=== PATIENT | female | born 1950 | race Caucasian/White ===

== ENCOUNTER → 2017-12-12 | Outpatient (CLI) | payer OTHER, MEDICARE | LOC: FIMAGING 09:09 | PROVIDERS: ATTEND Orthopaedic Surgery | DX: Z01.818 Encounter for other preprocedural examination (principal); M17.12 Unilateral primary osteoarthritis, left knee ==

== ENCOUNTER 2017-12-27 09:54 | Observation (INO) | payer OTHER, MEDICARE ==
[~2017-12-27 09:54] MED LIST: *IRR*TRANEXAMIC ACID 3,000 MG/NS 50 ML IRR ONE; ROPIVACAINE 0.2% 80 MG, EPINEPHrine 0.2 MG, KETOROLAC TROMETHAMINE 30 MG in SYRINGE 0 ML IU ONE; TRANEXAMIC ACID 3,000 MG in NS 50 ML IRR ONE; TRANEXAMIC ACID 3,000 MG/50 ML BAG IRR ONE
[2017-12-27] MEDS ORDERED: ACETAMINOPHEN 325 MG TAB PO ONE (10:13)
[2017-12-27] MEDS ORDERED: ceFAZolin 2 GM/SWFI 2 GM/20 ML SYR IVP ONE (10:13)
[2017-12-27] MEDS ORDERED: FAMOTIDINE 20 MG TAB PO ONE (10:13)
[2017-12-27] MEDS ORDERED: DEXAMETHASONE 4 MG/ML VIAL IVP ONE (10:13)
[2017-12-27] MEDS ORDERED: LR 1,000 ML IV ONE (10:15)
[2017-12-27] MEDS ORDERED: LIDOCAINE 1% 2 ML INJ ID PRN (10:15)
[2017-12-27 11:13] LABS: INR 1.01 (0.83-1.16); PROTIME(PATIENT) 13.5 SEC (12.0-15.0)
[2017-12-27] MEDS ORDERED: MIDAZOLAM 2 MG/2 ML VIAL IVP ONE (12:08)
--- NOTE | 2017-12-27 12:11 | PDANEPAE ---
ANE Past Medical History - Cardiovascular History Hx Hypertension: Yes Hx Arrhythmias: No Hx Chest Pain: No Hx Coronary Artery / Peripheral Vascular Disease: No Hx CHF / Valvular Disease: No Hx Palpitations: No Cardiovascular History Comment: pt has significant hx of DVT's and pulmonary emboli - Pulmonary History Hx COPD: No Hx Asthma/Reactive Airway Disease: No Hx Recent Upper Respiratory Infection: No Hx Oxygen in Use at Home: No Hx Sleep Apnea: No Sleep Apnea Screening Result - Last Documented: Positive Pulmonary History Comment: pulmonary emboli - Neurologic History Hx Cerebrovascular Accident: No Hx Seizures: No Hx Dementia: No Neurologic History Comment: unknown episode in 2010 all tests came up negative except for thyroid issues - Endocrine History Hx Diabetes: Yes Endocrine History Comment: 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 Bilat shoulder surgery 04/2013. 3 knee surgeries. hysterectomy. laminotomy. Foot surgery. foot surgery ANE Review of Systems Review of Systems: - Exercise capacity METS (RN): 5 METS - Systems Hematologic/Lymphatic: Reports: blood clots ANE Patient History - Allergies Allergies/Adverse Reactions: erythromycin base [Erythromycin Base] Allergy (Mild, Verified 12/27/17 10:30) Rash - Home Medications Home Medications: Acetaminophen [Tylenol 325mg (*)] 325 mg PO DAILY PRN 11/23/17 [Last Taken 12/26 16:00] Atorvastatin Calcium [Lipitor 20 mg (*)] 20 mg PO HS 11/23/17 [Last Taken 20:30] Calcium Carbonate [Oyster Shell Calcium 500 mg (*)] 500 mg PO DAILY 11/23/17 [ Last Taken 12/13/17] Cholecalciferol Vit D3 [Vitamin D3 (*)] 5,000 units PO DAILY 11/23/17 [Last Taken 12/13/17] Colchicine [Colchicine (*)] 0.6 mg PO DAILY 11/23/17 [Last Taken 12/20/17] Losartan/Hctz 50/12.5 [Hyzaar 50/12.5MG (*)] 1 tab PO DAILY 11/23/17 [Last Taken 12/26/17 07:30] Multivitamins [Multivitamin (*)] 1 each PO DAILY 11/23/17 [Last Taken 12/13/17] Warfarin Sodium [Coumadin 2MG (*)] 7 mg PO SUTUTH@1930 11/23/17 [Last Taken ] Warfarin Sodium [Coumadin 3MG (*)] 6 mg PO MOWEFRSA@1930 11/23/17 [Last Taken ] metFORMIN SR [Glucophage XR 500 mg (*)] 500 mg PO BID 11/23/17 [Last Taken 12/26 18:30] methylPREDNISolone [Medrol 4mg (*)] 4 mg PO DAILY 11/23/17 [Last Taken 12/26/17 20:00] - NPO status NPO Since - Liquids (Date): 12/27/17 NPO Since - Liquids (Time): 08:15 NPO Since - Solids (Date): 12/26/17 NPO Since - Solids (Time): 19:00 - Anes Hx Anes Hx: no prior problems - Smoking Hx Smoking Status: Never smoked - Family Anes Hx Family Hx Anesthesia Complications: none ANE Labs/Vital Signs - Vital Signs Blood Pressure: 124/74 Heart Rate: 89 Respiratory Rate: 16 O2 Sat (%): 95 Height: 175.26 cm Weight: 102.058 kg ANE Physical Exam - Airway Neck exam: FROM Mallampati Score: Class 2 Mouth exam: normal dental/mouth exam - Pulmonary Pulmonary: no respiratory distress, no rales or rhonchi, clear to auscultation - Cardiovascular Cardiovascular: regular rate and rhythym, no murmur, rub, or gallop - ASA Status ASA Status: II ANE Anesthesia Plan Anesthesia Plan: spinal Regional Anesthesia: adductor canal FNB
[2017-12-27] MEDS ORDERED: fentaNYL 100 MCG/2 ML INJ ONE (12:15)
[2017-12-27] MEDS ORDERED: PROPOFOL/EMULSION 500 MG/50 ML BOTTLE IV ONE (12:15)
[2017-12-27] MEDS ORDERED: DEXAMETHASONE 4 MG/ML VIAL ONE (12:15)
[2017-12-27] MEDS ORDERED: BUPIVACAINE/EPI 0.5% 30 ML SDV ONE (12:18)
--- NOTE | 2017-12-27 12:34 | PDHPUP ---
History & Physical Update H&P update statement: This history and physical update is based on an assessment of the patient which was completed after admission or registration (within 24 hours), but prior to the surgery/procedure. H&P update: H&P reviewed & patient examined, no change in patient's condition since H&P completed
[2017-12-27] MEDS ORDERED: OXYCODONE/APAP 5/325 TAB PO PRN (13:45)
[2017-12-27] MEDS ORDERED: fentaNYL 100 MCG/2 ML INJ IVP PRN (13:45)
[2017-12-27] MEDS ORDERED: LR 500 ML IV PRN (13:45)
[2017-12-27] MEDS ORDERED: NALOXONE HCL 0.4 MG/ML INJ IVP PRN (13:45)
[2017-12-27] MEDS ORDERED: LABETALOL HCL 5 MG/ML 20 ML MDV IVP PRN (13:45)
[2017-12-27] MEDS ORDERED: ENALAPRILAT DIHYDRATE 1.25 MG/ML VIAL IVP PRN (13:45)
[2017-12-27] MEDS ORDERED: ONDANSETRON 4 MG/2 ML VIAL IVP PRN ×2 (13:45→14:08)
[2017-12-27] MEDS ORDERED: PROMETHAZINE HCL 25 MG/ML INJ IVP PRN ×2 (13:45→14:08)
[2017-12-27] MEDS ORDERED: METOCLOPRAMIDE 10 MG/2 ML VIAL IVP PRN (14:08)
[2017-12-27] MEDS ORDERED: DIPHENOXYLATE/ATROPINE LOMOTIL 1 TAB PO PRN (14:08)
[2017-12-27] MEDS ORDERED: CYCLOBENZAPRINE 10 MG TAB PO PRN (14:08)
[2017-12-27] MEDS ORDERED: LACTULOSE 20 GM/30 ML UDCUP PO PRN (14:08)
[2017-12-27] MEDS ORDERED: BISACODYL 10 MG SUPP PR PRN (14:08)
[2017-12-27] MEDS ORDERED: MAGNESIUM HYDROXIDE 30 ML UDCUP PO PRN (14:08)
[2017-12-27] MEDS ORDERED: TEMAZEPAM 15 MG CAP PO PRN (14:08)
[2017-12-27] MEDS ORDERED: PROMETHAZINE HCL 25 MG SUPPR PR PRN (14:08)
[2017-12-27] MEDS ORDERED: POLYETHYLENE GLYCOL 3350 17 GM PKT PO PRN (14:08)
[2017-12-27] MEDS ORDERED: ONDANSETRON DISINTEGRATING 4 MG TAB PO PRN (14:08)
[2017-12-27] MEDS ORDERED: diphenhydrAMINE 25 MG CAP PO PRN (14:08)
--- NOTE | 2017-12-27 14:08 | POSTOPPROG ---
Post Op Note Date of Operation: 12/27/17 Surgeon: Artis Dkyes Occupational Therapist Aide: dillon dykes Anesthesiologist: dr. lucero Anesthesia: Spinal, Other (Specify) (adductor canal block) Pre-op Diagnosis: left knee OA Post-op Diagnosis: same Indication: left knee pain due to OA that failed conservative measures Procedure: L TKA robot assisted, and hardware removal Findings: severe knee OA Inf/Abcess present in the surg proc area at time of surgery?: No EBL: 50-100 Specimen(s): synovial fluid
[2017-12-27] MEDS ORDERED: LR 1,000 ML IV SCH (14:30)
--- NOTE | 2017-12-27 15:28 | POSTANESTH ---
Post Anesthetic Evaluation Cardiovascular Status: Normal, Stable, Similar to Pre-Op Cond Respiratory Status: Normal, Stable, Similar to Pre-op Cond. Level of Consciousness/Mental Status: Can Participate in Eval, Mildly Sleepy, Arousable Pain Control: Adequate, Prn Tx Ordered Nausea/Vomiting Control: Adequate, Prn Tx Ordered Complications Possibly Related to Anesthesia: None Noted (Adductor canal nerve block performed in PACU.)
[2017-12-27] MEDS ORDERED: WARFARIN SODIUM 3 MG TAB PO SCH (16:00)
[2017-12-27] MEDS: ACETAMINOPHEN 325 MG TAB PO SCH ×2 (17:58→23:34)
[2017-12-27] MEDS: oxyCODONE IR 5 MG TAB PO PRN (20:41)
[2017-12-27] MEDS: metFORMIN SR 500 MG TAB PO SCH (20:42)
[2017-12-27] MEDS: ceFAZolin 2 GM/DEXTROSE 100 ML IV SCH (20:42)
[2017-12-27] MEDS: SENNOSIDES/DOCUSATE SODIUM TAB PO SCH (20:42)
[2017-12-27] MEDS: FAMOTIDINE 20 MG TAB PO SCH (20:42)
[2017-12-27] MEDS ORDERED: ATORVASTATIN CALCIUM 20 MG TAB PO SCH (21:00)
[2017-12-28] MEDS: oxyCODONE IR 5 MG TAB PO PRN ×2 (02:24→07:41)
[2017-12-28] MEDS: ceFAZolin 2 GM/DEXTROSE 100 ML IV SCH (05:00)
[2017-12-28] MEDS: ACETAMINOPHEN 325 MG TAB PO SCH (05:00)
[2017-12-28 05:30] LABS: INR 1.09 (0.83-1.16); PROTIME(PATIENT) 14.3 SEC (12.0-15.0)
[2017-12-28 07:28] VITALS: BP 132/87; PULSE 56; RESP 16; TEMP 97.9; O2SAT 93
[2017-12-28] MEDS: FAMOTIDINE 20 MG TAB PO SCH (08:36)
[2017-12-28] MEDS: metFORMIN SR 500 MG TAB PO SCH (08:36)
[2017-12-28] MEDS: SENNOSIDES/DOCUSATE SODIUM TAB PO SCH (08:37)
[2017-12-28] MEDS ORDERED: methylPREDNISolone 4 MG TAB PO SCH (09:00)
[2017-12-28] MEDS ORDERED: ENOXAPARIN 40 MG/0.4 ML SYR SC SCH (09:00)
[2017-12-28] MEDS ORDERED: LOSARTAN/HCTZ 50/12.5 1 TAB PO SCH (09:00)
--- NOTE | 2017-12-28 12:13 | ASDISCHSUM ---
Discharge Information Plan Status:Home with No Needs Medically Cleared to Leave: Discharge Date:12/28/2017 11:01 AM CM D/C Disposition:Home, Routine, Self-Care ADT D/C Disposition:Home, Routine, Self-Care Projected Discharge Date:12/28/2017 11:01 AM Transportation at D/C: Discharge Delay Reason: Follow-Up Date:12/28/2017 11:01 AM Discharge Slot: Final Diagnosis: Placement Information Patient Contact Information Contact Name:PHYLLIS Relationship:Life Partner Address:[address] City:[facility] Phone: [facility]/Zip Code:[place] [address] Email: Financial Information Financial Class: Primary Plan Desc:MEDICARE OUTPATIENT Primary Plan Number:[id number] Secondary Plan Desc:[employer]/MDR SUPPLEMENT Secondary Plan Number:[id number] Assessment Information Intervention Information Intervention Type:*Incorrect Registration Date of Service:12/27/2017 03:54 PM Patient Type:Inpatient Staff Member:MOY Smith Kerry Hours: Discipline: Severity: Comment: Intervention Type:*GRANDE-Signed Date of Service:12/28/2017 09:59 AM Patient Type:Observation Staff Member:Traci Villalba Hours: Discipline: Severity: Comment:
--- NOTE | 2017-12-28 13:04 | SOAPPROG ---
SOAP Progress Note Assessment/Plan: Assessment: Gloria is doing POD 1 s/p L TKA pain is well controlled on oral medications DVT ppx: recommend coumadin and lovenox anemia: level is expected initially postop d/c planning: d/c to home pending release from PT Plan: 12/28/17 13:03 Subjective: Gloria is doing well today, denies SOB, chest pain and N/V. Objective: Vital Signs Temp Pulse Resp BP Pulse Ox 36.6 C 56 L 16 132/87 H 93 12/28/17 07:27 12/28/17 07:27 12/28/17 07:27 12/28/17 08:36 12/28/17 07:27 Microbiology 12/27/17 13:13 Gram Stain - Final Knee - Aspirate Laboratory Results 12/28/17 04:55 12/27/17 12/28/17 12/29/17 05:59 05:59 05:59 Intake Total 1826 500 Output Total 1100 500 Balance 726 0 PT 14.3 SEC (12.0-15.0) 12/28/17 04:55 INR 1.09 (0.83-1.16) 12/28/17 04:55 LLE; incision dressing is clean and dry, NVI, +pf/df ICD10 Worksheet Patient Problems: Problems Problem Status Onset Primary localized osteoarthritis of left knee Acute Pulmonary embolism Acute
--- NOTE | 2017-12-28 14:22 | GOP ---
[f rep st] OPERATIVE REPORT DATE OF OPERATION: 12/27/2017 SURGEON: Aravind Hansen MD [employer] DRIVER: Marcella Hansen PA-C ANESTHESIA: Spinal. PREOPERATIVE DIAGNOSIS: Left knee osteoarthritis. POSTOPERATIVE DIAGNOSIS: Left knee osteoarthritis. PROCEDURE PERFORMED: Left total knee arthroplasty with computer navigation and robotic assist. FINDINGS: ESTIMATED BLOOD LOSS: 30 cc. INDICATIONS: The patient is a 67-year-old female with severe and progressive pain and deformity of the left knee unresponsive to conservative care. The risks and benefits of surgical intervention were explained in detail. DESCRIPTION OF PROCEDURE: The patient was brought to the operative room and placed on the table in the supine position. Spinal anesthesia was induced without difficulty. A pneumatic tourniquet was applied about the left proximal thigh, and the leg was prepped and draped in a sterile fashion. The leg catalan was applied. After exsanguination by elevation the tourniquet was inflated to 250 mmHg. Incision was made anterior medial from the tibial tuberosity to a point 2 cm proximal to the superior pole of the patella. Medial parapatellar arthrotomy was carried out from the superior pole of the patella and posteriorly in line with the fibers of the Type II VMO. The medial collateral ligament was elevated and the infrapatellar fat pad was resected. Staple hardware was removed without difficulty. The patella was everted and the articular surface was excised. A 35 mm patellar button was placed. Attention was turned first to the distal aspect of the femur. After exposure of the femur, 2 half pins were placed for fixation of the femoral array. In a similar fashion, 2 pins were placed anteromedial on the tibia for fixation of the tibial array. External land marking and registration of the hip center were performed without difficulty. Internal femoral and tibial registration were carried out without difficulty and the femoral and tibial checkpoints were placed and verified for accuracy. Attention was turned to the femur. The foot print for the size 4 femoral component was cut with the saw using the [employer] robotic system and verified for accuracy against the CT based plan. In a similar fashion, the saw was used to cut the footprint for the size 5 tibial component using the JAG system and verified for accuracy against the CT based plan. The tibial articular surface was excised without difficulty, followed by the intercondylar box cut. The knee was extended and the remnants of the medial and lateral meniscus were excised. The posterior capsule was injected with ropivacaine, epinephrine and Toradol. A size 5 tibial tray was positioned. Trial reduction was then carried out. There was excellent range of motion, alignment, and stability using the 9 mm polyethylene. All trials were then removed. The joint was thoroughly irrigated and carefully dried. The press-fit components were implanted. The permanent 9 mm polyethylene was placed without difficulty. The tourniquet was deflated and all bleeders were coagulated. The wound was thoroughly irrigated and closed using interrupted sutures of 2-0 Vicryl for the joint capsule. The subcu was closed with 3-0 Vicryl and the skin with 4-0 Monocryl. Dermabond and Steri-Strips were applied followed by a compressive dressing. The patient was then moved from the operating room to the recovery room in good condition, having tolerated the procedure well. /[id number]/MODL MTDD
[2017-12-28] MEDS ORDERED: WARFARIN SODIUM 2 MG TAB PO SCH (19:30)
--- NOTE | 2017-12-28 22:59 | GDS ---
[f rep st] DISCHARGE SUMMARY ADMISSION DIAGNOSIS: Left knee osteoarthritis. DISCHARGE DIAGNOSIS: Left knee osteoarthritis. PROCEDURE: Left total knee arthroplasty, robot assisted. VTE PROPHYLAXIS: Recommend patient resume Coumadin and continue on Lovenox. BRIEF DESCRIPTION OF HOSPITAL STAY: Patient was admitted for an elective joint arthroplasty. The pa rachele tolerated the procedure well and has passed physical therapy. The patient was given appropriat e antibiotic prophylaxis and venous thromboembolism prophylaxis. The patient's pain was well control led on oral pain medication, patient was holding down food, and had urinated. Decision was made to d ischarge the patient. The patient was given post-operative prescriptions pre-operatively. PLAN: Please follow up as scheduled in Dr. Hansen's office in 3 weeks. /[id number]/MODL
== END 2017-12-28 11:01 | disposition home or self-care (01) ==
LOC: F3N 09:54 → INTOOBSV 09:54 → F3N 15:09
PROVIDERS: ADMIT Orthopaedic Surgery; ATTEND Orthopaedic Surgery
PROC: 0SRD0JA Replacement of Left Knee Joint with Synthetic Substitute, Uncemented, Open Approach (ICD-10-PCS; principal; 2017-12-27 12:15)
PROC: 8E0YXBZ Computer Assisted Procedure of Lower Extremity (ICD-10-PCS; principal; 2017-12-27 12:15)
DX: M17.12 Unilateral primary osteoarthritis, left knee (principal); M25.562 Pain in left knee; I10 Essential (primary) hypertension; G47.33 Obstructive sleep apnea (adult) (pediatric); R73.03 Prediabetes; Z79.01 Long term (current) use of anticoagulants; Z86.711 Personal history of pulmonary embolism; Z86.718 Personal history of other venous thrombosis and embolism
CPT/HCPCS: 20985; 27447; 73560; 88311; 97161; 97165; C1776; G8978; G8979; G8980; G8987; G8988; G8989; J0171; J0690; J1100; J1650; J1885; J2250; J2704; J2795; J3010

== ENCOUNTER 2018-11-23 17:39 | Observation (INO) | payer OTHER, MEDICARE ==
[2018-11-23] MEDS ORDERED: NS 1,000 ML IV ONE ×2 (17:47→18:59)
[2018-11-23 17:58] LABS: PLATELET COUNT 343 10^3/uL (150-400)
--- NOTE | 2018-11-23 19:41 | EDPHY ---
H & P Stated Complaint: near syncope Time Seen by Provider: 11/23/18 17:45 HPI/ROS: Chief complaint: Nausea, vomiting, diarrhea and near-syncope History of present illness: This is a 68-year-old female who presents to the emergency department with EMS for nausea, vomiting and diarrhea with multiple near syncopal episodes. Patient reports she was a near usual state of health last night. She is out with her and friends. She ate pizza and salad for dinner. This morning she woke up feeling unwell. She subsequently developed multiple episodes of nausea, vomiting and diarrhea. Described as nonbloody. Symptoms have been persistent. Occasional abdominal cramping. She is taken to Imodium with no effect. She decided to come to the hospital, however she attempted to get up and fell over. She has had multiple near syncopal episodes. EMS had to be called she was able to come here on her own. She does take Coumadin for remote history of PE. Her INR today was 4.1, this morning it was 3.1. Review of systems: A 10 point review of systems was obtained and other than described above was negative - Personal History Current Tetanus/Diphtheria Vaccine: Yes Current Tetanus Diphtheria and Acellular Pertussis (TDAP): Yes - Medical/Surgical History Hx Asthma: No Hx Chronic Respiratory Disease: No Hx Diabetes: No Hx Cardiac Disease: No Hx Renal Disease: No Hx Cirrhosis: No Hx Alcoholism: No Hx HIV/AIDS: No Hx Splenectomy or Spleen Trauma: No Other PMH: HTN. L rotator cuff repair 3 days ago. PMR - Social History Smoking Status: Never smoked - Physical Exam Exam: General Appearance: Alert, is a nontoxic. Eyes: Pupils equal and round no pallor or injection. ENT, Mouth: Mucous membranes moist. Respiratory: There are no retractions, lungs are clear to auscultation. Cardiovascular: Regular rate and rhythm. Gastrointestinal: Bowel sounds normal. Abdomen is soft, nondistended, nontender. Neurological: Alert and oriented x4. Strength and sensation intact and symmetrical. Skin: Warm and dry, no rashes. Musculoskeletal: Neck is supple non tender. Extremities are symmetrical, full range of motion. Psychiatric: Patient is oriented X 3, there is no agitation. Constitutional: Initial Vital Signs Temperature (C) 36.7 C 11/23/18 17:42 Heart Rate 81 11/23/18 17:42 Respiratory Rate 18 11/23/18 17:42 Blood Pressure 136/88 H 11/23/18 17:42 O2 Sat (%) 98 11/23/18 17:42 O2 Delivery Mode Room Air Allergies/Adverse Reactions: erythromycin base [Erythromycin Base] Allergy (Mild, Verified 12/27/17 10:30) Rash Home Medications: Medication Instructions Recorded Atorvastatin Calcium [Lipitor 20 20 mg PO HS 11/23/17 mg (*)] Calcium Carbonate [Oyster Shell 500 mg PO DAILY 11/23/17 Calcium 500 mg (*)] Cholecalciferol Vit D3 [Vitamin D3 5,000 units PO DAILY 11/23/17 (*)] Colchicine [Colchicine (*)] 0.6 mg PO Q2D 11/23/17 Losartan/Hctz 50/12.5 [Hyzaar 1 tab PO DAILY 11/23/17 50/12.5MG (*)] methylPREDNISolone [Medrol 4mg (*)] 4 mg PO Q2D 11/23/17 Colchicine [Colchicine (*)] 0.3 mg PO Q2D 11/23/18 Warfarin Sodium [Coumadin 1MG (*)] 1 mg PO DAILY16 11/23/18 Warfarin Sodium [Coumadin 5MG (*)] 5 mg PO DAILY16 11/23/18 methylPREDNISolone [Medrol 4mg (*)] 2 mg PO Q2D 11/23/18 Medical Decision Making ED Course/Re-evaluation: Patient is discussed with my secondary supervising physician Dr. Misael Funes. Patient presents to the emergency department with persistent nausea, vomiting and diarrhea and had multiple near syncopal episodes this evening. Ultimately I am concerned she is dehydrated. She is IV hydrated with improvement in symptoms. However I am concerned sending her home with ongoing symptoms is not safe as she may not be able to perform ADLs, and if she has more falling episodes she could injured herself and she is on Coumadin. I discussed home versus inpatient care. She is comfortable being admitted. She is admitted to the hospitalist service, Dr. Tuan Ford for further evaluation and care. Differential Diagnosis: Included but not limited to hypovolemic state including dehydration anemia, electrolyte disturbances, cardiac dysrhythmia, unlikely PE given lack of chest pain, shortness of breath and currently on anticoagulants - Data Points Laboratory Results: Laboratory Results 11/23/18 17:45 11/23/18 17:45 11/23/18 11/23/18 11/23/18 19:01 17:56 17:45 WBC RBC Hgb Hct MCV MCH MCHC RDW Plt Count MPV Neut % (Auto) Lymph % (Auto) Fergus % (Auto) Eos % (Auto) Baso % (Auto) Nucleat RBC Rel Count Absolute Neuts (auto) Absolute Lymphs (auto) Absolute Monos (auto) Absolute Eos (auto) Absolute Basos (auto) Absolute Nucleated RBC Immature Gran % Seg Neutrophils % Band Neutrophils % Lymphocytes % Monocytes % Eosinophils % Basophils % Metamyelocytes % Myelocytes % Promyelocytes % Blast Cells % Immature Gran # Absolute Seg Neuts Absolute Band Neuts Absolute Lymphocytes Absolute Monocytes Absolute Eosinophils Absolute Basophils Absolute Metamyelocyte Absolute Myelocytes Absolute Promyelocytes Absolute Plasma Cells Nucleated RBCs Absolute Blast Cells Plasma Cells % Platelet Estimate Polychromasia PT 28.9 SEC H SEC (12.0-15.0) INR 2.74 H (0.83-1.16) Sodium 139 mEq/L mEq/L (135-145) Potassium 4.0 mEq/L mEq/L (3.5-5.2) Chloride 106 mEq/L mEq/L (97-110) Carbon Dioxide 23 mEq/l mEq/l (22-31) Anion Gap 10 mEq/L mEq/L (6-14) BUN 20 mg/dL mg/dL (7-23) Creatinine 1.2 mg/dL H mg/dL (0.6-1.0) Estimated GFR 45 Glucose 160 mg/dL H mg/dL (70-100) Calcium 9.3 mg/dL mg/dL (8.5-10.4) POC Troponin I 0.01 ng/mL ng/mL (0.00-0.08) 11/23/18 17:45 WBC 6.96 10^3/uL 10^3/uL (3.80-9.50) RBC 4.91 10^6/uL 10^6/uL (4.18-5.33) Hgb 14.1 g/dL g/dL (12.6-16.3) Hct 43.9 % % (38.0-47.0) MCV 89.4 fL fL (81.5-99.8) MCH 28.7 pg pg (27.9-34.1) MCHC 32.1 g/dL L g/dL (32.4-36.7) RDW 15.0 % % (11.5-15.2) Plt Count 343 10^3/uL 10^3/uL (150-400) MPV 10.2 fL fL (8.7-11.7) Neut % (Auto) Not Reported Lymph % (Auto) Not Reported Fergus % (Auto) Not Reported Eos % (Auto) Not Reported Baso % (Auto) Not Reported Nucleat RBC Rel Count Not Reported Absolute Neuts (auto) Not Reported Absolute Lymphs (auto) Not Reported Absolute Monos (auto) Not Reported Absolute Eos (auto) Not Reported Absolute Basos (auto) Not Reported Absolute Nucleated RBC Not Reported Immature Gran % Not Reported Seg Neutrophils % 74.0 % % Band Neutrophils % 15.0 % % Lymphocytes % 3.0 % % Monocytes % 6.0 % % Eosinophils % 2.0 % % Basophils % 0.0 % % Metamyelocytes % 0.0 % % Myelocytes % 0.0 % % Promyelocytes % 0.0 % % Blast Cells % 0.0 % % Immature Gran # Not Reported Absolute Seg Neuts 5.15 10^3/uL 10^3/uL (1.70-6.50) Absolute Band Neuts 1.04 10^3/uL H 10^3/uL (0.00-0.70) Absolute Lymphocytes 0.21 10^3/uL L 10^3/uL (1.00-3.00) Absolute Monocytes 0.42 10^3/uL 10^3/uL (0.30-0.80) Absolute Eosinophils 0.14 10^3/uL 10^3/uL (0.03-0.40) Absolute Basophils 0.00 10^3/uL L 10^3/uL (0.02-0.10) Absolute Metamyelocyte 0.00 10^3/mL 10^3/mL (0.00-0.00) Absolute Myelocytes 0.00 10^3/mL 10^3/mL (0.00-0.00) Absolute Promyelocytes 0.00 10^3/uL 10^3/uL (0.00-0.00) Absolute Plasma Cells 0.00 10^3/uL 10^3/uL (0.00-0.00) Nucleated RBCs 0 /100 WBC /100 WBC (0-0) Absolute Blast Cells 0.00 10^3/uL 10^3/uL (0.00-0.00) Plasma Cells % 0.0 % % Platelet Estimate ADEQUATE (ADEQ) Polychromasia 1+ H PT INR Sodium Potassium Chloride Carbon Dioxide Anion Gap BUN Creatinine Estimated GFR Glucose Calcium POC Troponin I Medications Given: Discontinued Medications Sodium Chloride (Ns) 1,000 mls @ 0 mls/hr IV EDNOW ONE; Wide Open PRN Reason: Protocol Stop: 11/23/18 17:48 Last Admin: 11/23/18 18:02 Dose: 1,000 mls Sodium Chloride (Ns) 1,000 mls @ 0 mls/hr IV ONCE ONE; Wide Open PRN Reason: Protocol Stop: 11/23/18 19:00 Last Admin: 11/23/18 19:00 Dose: 1,000 mls Point of Care Test Results: Chemistry 11/23/18 17:56 POC Troponin I 0.01 ng/mL ng/mL (0.00-0.08) Departure - Departure Disposition: [facility] Inpatient Acute Clinical Impression: Vomiting and diarrhea Condition: Good
[2018-11-23 21:38] LABS: INR 2.74 (0.83-1.16); PROTIME(PATIENT) 28.9 SEC (12.0-15.0)
[2018-11-23] MEDS ORDERED: HYDROmorphONE/DILAUDID 1 MG/ML INJ IVP PRN (22:01)
[2018-11-23] MEDS ORDERED: ACETAMINOPHEN 325 MG TAB PO PRN (22:01)
[2018-11-23] MEDS ORDERED: ONDANSETRON 4 MG/2 ML VIAL IVP PRN (22:01)
[2018-11-23] MEDS ORDERED: oxyCODONE IR 5 MG TAB PO PRN (22:01)
[2018-11-23] MEDS ORDERED: ONDANSETRON DISINTEGRATING 4 MG TAB PO PRN (22:01)
[2018-11-23] MEDS ORDERED: ATORVASTATIN CALCIUM 20 MG TAB PO SCH (23:30)
[2018-11-24] MEDS ORDERED: WARFARIN SODIUM 3 MG TAB PO ONE (00:11)
[2018-11-24] MEDS ORDERED: NS 1,000 ML IV SCH (00:30)
--- NOTE | 2018-11-24 01:54 | PDGENHP ---
History and Physical - Chief Complaint Nausea, vomiting, diarrhea, presyncope - History of Present Illness Source-patient provides history appears reliable. EMR was reviewed and case discussed with accepting hospitalist. 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 Patient reports that she and her partner were at a friend's home for dinner which included salad in [employer]. They felt fine going to bed however this morning both she and her partner or feeling ill. She is unsure if anybody else at green party became ill. Both developed similar symptoms including nausea, vomiting, diarrhea. Patient denies any hematemesis, melena or hematochezia. Diarrhea as pure water by her report. She reports some intermittent abdominal cramping which is now improved status post antiemetics. At home patient did try to take some Lomotil without any improvement in her symptoms. She states that she had 2 or 3 episodes of vomiting but consistent nausea. Patient reports that she had been getting up consistently to go to the bathroom however just prior to EMS being called patient notes that she felt lightheaded and slumped forward into the couch. She denies any loss of consciousness or injury. Because she was feeling so weak overall she had stay trouble staying upright. Patient's partner became concerned and called EMS. History Information - Allergies/Home Medication List Allergies/Adverse Reactions: erythromycin base [Erythromycin Base] Allergy (Mild, Verified 12/27/17 10:30) Rash Home Medications: Atorvastatin Calcium [Lipitor 20 mg (*)] 20 mg PO HS 11/23/17 [Last Taken ] Calcium Carbonate [Oyster Shell Calcium 500 mg (*)] 500 mg PO DAILY 11/23/17 [ Last Taken 11/23/18] Cholecalciferol Vit D3 [Vitamin D3 (*)] 5,000 units PO DAILY 11/23/17 [Last Taken 11/23/18] Colchicine [Colchicine (*)] 0.6 mg PO Q2D 11/23/17 [Last Taken 11/23/18] Losartan/Hctz 50/12.5 [Hyzaar 50/12.5MG (*)] 1 tab PO DAILY 11/23/17 [Last Taken 11/23/18] methylPREDNISolone [Medrol 4mg (*)] 4 mg PO Q2D 11/23/17 [Last Taken 11/23/18] Colchicine [Colchicine (*)] 0.3 mg PO Q2D 11/23/18 [Last Taken 11/22/18] Warfarin Sodium [Coumadin 1MG (*)] 1 mg PO DAILY16 11/23/18 [Last Taken 11/22/18 ] Warfarin Sodium [Coumadin 5MG (*)] 5 mg PO DAILY16 11/23/18 [Last Taken 11/22/18 ] methylPREDNISolone [Medrol 4mg (*)] 2 mg PO Q2D 11/23/18 [Last Taken 11/22/18] I have personally reviewed and updated: family history, medical history, social history, surgical history - Past Medical History Additional medical history: Polymyalgia rheumatica on chronic daily steroids. HTN. STU on CPAP. Osteoarthritis. Pre DM on metformin. History of PE postop and DVT following trauma off a ladder.Patient reports that she is followed by Hematology and was evaluated for coagulopathy. She reports that she has a mild genetic predisposition for VTE but can't recall the diagnosis. - Surgical History Additional surgical history: Left rotator cuff repair 2012 and revision 2015. Left TKA 11/2017 - Family History Additional family history: Mother - history of ovarian cancer and asthma. Father-lung cancer with history of tobacco use And skin problems. Brother- psoriasis. Other brother is healthy. Sister-MS - Social History Smoking Status: Never smoked Alcohol Use: None Drug Use: None Additional social history: Patient is lives with her . Cor status- full. Review of Systems Review of Systems: ROS: 10pt was reviewed & negative except for what was stated in HPI & below Physical Exam Physical Exam: Selected Entries 11/23/18 11/23/18 11/24/18 17:42 21:10 00:00 Blood Pressure Automatic Method Heart Rate 81 82 90 Respiratory 18 18 16 Rate O2 Sat (%) 98 94 91 L Temperature (C) 36.7 C 37.1 C 36.9 C Blood Pressure 136/88 H 124/61 H 94/53 L Mean Arterial 104 H 82 66 Pressure (MAP) Activity During At Rest Vital Signs O2 Delivery Room Air Room Air CPAP Mode Blood Pressure Right Right Source Upper Upper Arm Arm Heart Rate/ Heart Rate/ Monitor Monitor Temperature Oral Oral Oral Source Heart Rate Heart Rate/ Heart Rate/ Source Monitor Monitor Constitutional: no apparent distress, appears nourished, obese, other (Patient appears fatigued but nontoxic.) Eyes: PERRL, anicteric sclera, EOMI, No scleral injection Ears, Nose, Mouth, Throat: dry mucous membranes, other (No nasal discharge.), No poor dentition, No hard of hearing Cardiovascular: regular rate and rhythym, no murmur, rub, or gallop, pulses symmetric bilaterally, other (Slightly distant heart sounds.), No edema Peripheral Pulses: 2+: dorsalis-pedis (R), dorsalis-pedis (L) Respiratory: no respiratory distress, no rales or rhonchi, clear to auscultation , No expiratory wheeze, No inspiratory crackles, No respiratory distress Gastrointestinal: soft, non-tender abdomen, no palpable masses, other ( Hypoactive bowel sounds. Obese abdomen.) Genitourinary: no bladder tenderness, No ob[place] in urethra Skin: warm, no rashes or abrasions, other (Slight pallor.) Musculoskeletal: generalized weakness (Patient is able to move all extremities. Generalized deconditioning and fatigue.) Neurologic: AAOx3, sensation intact bilaterally, other (Grossly nonfocal exam.) , No facial droop Psychiatric: interacting appropriately, not anxious, not encephalopathic, thought process linear Lab Data & Imaging Review 11/23/18 17:45 11/23/18 17:45 WBC 6.96 10^3/uL (3.80-9.50) 11/23/18 17:45 RBC 4.91 10^6/uL (4.18-5.33) 11/23/18 17:45 Hgb 14.1 g/dL (12.6-16.3) 11/23/18 17:45 Hct 43.9 % (38.0-47.0) 11/23/18 17:45 MCV 89.4 fL (81.5-99.8) 11/23/18 17:45 MCH 28.7 pg (27.9-34.1) 11/23/18 17:45 MCHC 32.1 g/dL (32.4-36.7) L 11/23/18 17:45 RDW 15.0 % (11.5-15.2) 11/23/18 17:45 Plt Count 343 10^3/uL (150-400) 11/23/18 17:45 MPV 10.2 fL (8.7-11.7) 11/23/18 17:45 Neut % (Auto) Not Reported 11/23/18 17:45 Lymph % (Auto) Not Reported 11/23/18 17:45 [place] % (Auto) Not Reported 11/23/18 17:45 Eos % (Auto) Not Reported 11/23/18 17:45 Baso % (Auto) Not Reported 11/23/18 17:45 Nucleat RBC Rel Count Not Reported 11/23/18 17:45 Absolute Neuts (auto) Not Reported 11/23/18 17:45 Absolute Lymphs (auto) Not Reported 11/23/18 17:45 Absolute Monos (auto) Not Reported 11/23/18 17:45 Absolute Eos (auto) Not Reported 11/23/18 17:45 Absolute Basos (auto) Not Reported 11/23/18 17:45 Absolute Nucleated RBC Not Reported 11/23/18 17:45 Immature Gran % Not Reported 11/23/18 17:45 Seg Neutrophils % 74.0 % 11/23/18 17:45 Band Neutrophils % 15.0 % 11/23/18 17:45 Lymphocytes % 3.0 % 11/23/18 17:45 Monocytes % 6.0 % 11/23/18 17:45 Eosinophils % 2.0 % 11/23/18 17:45 Basophils % 0.0 % 11/23/18 17:45 Metamyelocytes % 0.0 % 11/23/18 17:45 Myelocytes % 0.0 % 11/23/18 17:45 Promyelocytes % 0.0 % 11/23/18 17:45 Blast Cells % 0.0 % 11/23/18 17:45 Immature Gran # Not Reported 11/23/18 17:45 Absolute Seg Neuts 5.15 10^3/uL (1.70-6.50) 11/23/18 17:45 Absolute Band Neuts 1.04 10^3/uL (0.00-0.70) H 11/23/18 17:45 Absolute Lymphocytes 0.21 10^3/uL (1.00-3.00) L 11/23/18 17:45 Absolute Monocytes 0.42 10^3/uL (0.30-0.80) 11/23/18 17:45 Absolute Eosinophils 0.14 10^3/uL (0.03-0.40) 11/23/18 17:45 Absolute Basophils 0.00 10^3/uL (0.02-0.10) L 11/23/18 17:45 Absolute Metamyelocyte 0.00 10^3/mL (0.00-0.00) 11/23/18 17:45 Absolute Myelocytes 0.00 10^3/mL (0.00-0.00) 11/23/18 17:45 Absolute Promyelocytes 0.00 10^3/uL (0.00-0.00) 11/23/18 17:45 Absolute Plasma Cells 0.00 10^3/uL (0.00-0.00) 11/23/18 17:45 Nucleated RBCs 0 /100 WBC (0-0) 11/23/18 17:45 Absolute Blast Cells 0.00 10^3/uL (0.00-0.00) 11/23/18 17:45 Plasma Cells % 0.0 % 11/23/18 17:45 Platelet Estimate ADEQUATE (ADEQ) 11/23/18 17:45 Polychromasia 1+ H 11/23/18 17:45 PT 28.9 SEC (12.0-15.0) H 11/23/18 19:01 INR 2.74 (0.83-1.16) H 11/23/18 19:01 Sodium 139 mEq/L (135-145) 11/23/18 17:45 Potassium 4.0 mEq/L (3.5-5.2) 11/23/18 17:45 Chloride 106 mEq/L (97-110) 11/23/18 17:45 Carbon Dioxide 23 mEq/l (22-31) 11/23/18 17:45 Anion Gap 10 mEq/L (6-14) 11/23/18 17:45 BUN 20 mg/dL (7-23) 11/23/18 17:45 Creatinine 1.2 mg/dL (0.6-1.0) H 11/23/18 17:45 Estimated GFR 45 11/23/18 17:45 Glucose 160 mg/dL (70-100) H 11/23/18 17:45 Calcium 9.3 mg/dL (8.5-10.4) 11/23/18 17:45 POC Troponin I 0.01 ng/mL (0.00-0.08) 11/23/18 17:56 EKG additional interpertation: NSR 70s. No acute ST changes. Diffusely low voltage with body habitus likely contributing. Patient with T-wave flattening V2, V3. 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 #Nausea, Vomiting and diarrhea (Acute) - likely due to acute viral gastroenteritis. Patient received IV fluids, antiemetics with improvement in her symptoms. She has exposures on positive sick contact of her spouse. GI PCR pending as patient continues to have episodes of diarrhea. Contact precautions at this time. # presyncope - patient denies any loss of consciousness. Likely contributing is dehydration versus less likely vasovagal response in setting of her acute GI issues. Patient without any complaints of lightheadedness or recurrence of symptoms. Patient's orthostatic blood pressures were appropriate. Continue to monitor patient's blood pressures. She will continue with IV fluid hydration overnight and repeat lab studies as noted below.. #Acute kidney injury - likely prerenal in nature in setting of nausea vomiting diarrhea and decreased oral intake. Patient's baseline creatinine appears to be 0.8 based on labs from 04/2018. Repeat BMP in the morning. Continue IV fluids overnight. Encourage oral hydration as tolerated. Chronic medical issues # chronic anticoagulation with Coumadin for history of PE and DVT - patient INR is therapeutic. She reports that 2 weeks ago with a size 4.1 and has been trending down. She takes 6 mg of Coumadin daily which will continue and give her her evening dose now. # benign essential hypertension - blood pressures are acceptable at this time. Given her dehydration and acute kidney injury will hold her losartan and HCTZ. # polymyalgia rheumatica - continue patient's current steroid dosing. Patient' s blood pressures appear adequate she has no electrolyte abnormalities do not suspect that she has any adrenal crises at this time to warrant increasing her steroids. She alternates 2 mg and 4 mg which will be ordered accordingly. # STU on CPAP-patient has her home CPAP at bedside. # pre DM - resume patient's metformin when her GFR has improved FEN - status post 2 L IV fluids in the emergency department. Continue IV fluid hydration overnight for supplementation. Encourage p. O. Hydration as tolerated. Electrolytes are adequate at this time not require placement. Diet as tolerated. PPX - SCDs if tolerated otherwise patient is therapeutic on her Coumadin which will be continued. COR - FULL Dispo - patient admitted to observation status [facility] the [facility] floor pending resolution of her symptoms and ability to p.o. Hydrate.
[2018-11-24 07:37] VITALS: BP 100/57
[2018-11-24] MEDS ORDERED: methylPREDNISolone 4 MG TAB PO SCH (09:00)
[2018-11-24] MEDS ORDERED: predniSONE 1 MG TAB PO SCH (09:00)
--- NOTE | 2018-11-24 09:48 | HOSPPROG ---
Hospitalist Progress Note Assessment/Plan: Gloria Espinoza skyler 68 y/o female who presented to the ER with a near syncopal episode and n,v and diarrhea. First encounter, chart reviewed. *Likely viral gastroenteritis -eating and drinking well this morning *n,v and diarrhea -resolved *presyncopal episode -no loss of consciousness -likely form dehydration *MELANY -recheck now *hx of PE and DVT -on OAC, INR therapeutic *PMR -steroids resumed *STU cpap *plan: dc if creat is stable Subjective: Gloria is feeling much improved, no further vomiting or diarrhea Objective: Vital Signs Temp Pulse Resp BP Pulse Ox 37.1 C 77 20 100/57 L 91 L 11/24/18 07:35 11/24/18 07:35 11/24/18 07:35 11/24/18 07:35 11/24/18 07:35 11/23/18 11/24/18 11/25/18 05:59 05:59 05:59 Intake Total 3500 Balance 3500 PT 28.9 SEC (12.0-15.0) H 11/23/18 19:01 INR 2.74 (0.83-1.16) H 11/23/18 19:01 - Physical Exam Constitutional: no apparent distress, appears nourished, not in pain Eyes: PERRL Ears, Nose, Mouth, Throat: hearing normal Cardiovascular: regular rate and rhythym Respiratory: no respiratory distress Gastrointestinal: normoactive bowel sounds, soft, non-tender abdomen Skin: warm Musculoskeletal: full muscle strength Neurologic: AAOx3 Psychiatric: interacting appropriately ICD10 Worksheet Patient Problems: Problems Problem Status Onset Vomiting and diarrhea Acute Primary localized osteoarthritis of left knee Acute Pulmonary embolism Acute
--- NOTE | 2018-11-24 11:15 | ASMTCMCOM ---
CM Note CM Note Notes: Pt admitted for gastroenteritis, symptoms resolving. Anticipate pt will dc home w/LP when medicallly stable. CM available for any changes. DC Independent Date Signed: 11/24/2018 11:14 AM Electronically Signed By:Winifred Quick RN
--- NOTE | 2018-11-24 12:38 | GDS ---
DISCHARGE DIAGNOSES: 1. Viral gastroenteritis. 2. Nausea, vomiting, diarrhea due to this. 3. Presyncopal episode. 4. Acute kidney injury. 5. History of pulmonary embolus and deep vein thrombosis. 6. Polymyalgia rheumatica. 7. Obstructive sleep apnea. HISTORY: Briefly, the patient is a 68-year-old female who presented to the ER with a near-syncopal e pisode and nausea, vomiting, and diarrhea. She was treated with IV hydration. Her diarrhea, nausea, and vomiting have all resolved. She is eating and drinking well. She will be discharged home and f caleb follow up with her PCP. HOSPITAL COURSE: 1. Likely viral gastroenteritis, resolved. 2. Nausea, vomiting, and diarrhea due to this, resolved. 3. Pre-syncopal episode. This is due to dehydration. She is feeling fine. 4. Acute kidney injury, resolved. 5. History of PE and DVT. She is on oral anticoagulation. INR is therapeutic. 6. Polymyalgia rheumatica, steroids resumed. 7. Obstructive sleep apnea. Wears CPAP. DISCHARGE CONDITION: Stable. Blood pressure is 100/57, heart rate of 77, respiratory rate of 20, O2 sats on room air 91%. Temperature is 37.1 Celsius. DISCHARGE MEDICATIONS: Please see the EMR. DISCHARGE INSTRUCTIONS: 1. To stay well hydrated. 2. Good handwashing. 3. To avoid taking her blood pressure medication if she is dehydrated. This is probably one of the causes of her presyncopal episode. /[id number]/MODL
[2018-11-24] MEDS ORDERED: WARFARIN SODIUM 1 MG TAB PO SCH (16:00)
[2018-11-24] MEDS ORDERED: WARFARIN SODIUM 3 MG TAB PO SCH (16:00)
[2018-11-25] MEDS ORDERED: predniSONE 1 MG TAB PO SCH (09:00)
[2018-11-25] MEDS ORDERED: methylPREDNISolone 4 MG TAB PO SCH (09:00)
[2018-11-26] MEDS ORDERED: methylPREDNISolone 4 MG TAB PO SCH (09:00)
--- NOTE | 2018-11-29 10:43 | CPEKG ---
Test Reason : OPEN Blood Pressure : / mmHG Vent. Rate : 078 BPM Atrial Rate : 079 BPM P-R Int : 158 ms QRS Dur : 082 ms QT Int : 438 ms P-R-T Axes : 041 005 053 degrees QTc Int : 499 ms Sinus rhythm Low voltage, precordial leads Borderline prolonged QT interval Confirmed by Lydia Vaca ([id number]) on 11/29/2018 10:42:49 AM Referred By: Confirmed By:Lydia Vaca
== END 2018-11-24 13:38 | disposition home or self-care (01) ==
LOC: EDUNIT# → F3E 20:55
PROVIDERS: ADMIT Internal Medicine; ATTEND Internal Medicine
DX: A08.4 Viral intestinal infection, unspecified (principal); R55 Syncope and collapse; E86.0 Dehydration; N17.9 Acute kidney failure, unspecified; M35.3 Polymyalgia rheumatica; G47.33 Obstructive sleep apnea (adult) (pediatric); I10 Essential (primary) hypertension; G43.909 Migraine, unspecified, not intractable, without status migrainosus; R73.03 Prediabetes; Z79.01 Long term (current) use of anticoagulants; Z79.52 Long term (current) use of systemic steroids; Z86.711 Personal history of pulmonary embolism; Z86.718 Personal history of other venous thrombosis and embolism; Z96.652 Presence of left artificial knee joint
CPT/HCPCS: 96360; 96361; 99285; G0378; J7512; 84484-ER